=== PATIENT | male | born 1975 | race American Indian/Alaskan Native ===

== ENCOUNTER 2016-10-12 11:33 | Emergency (ER) | payer MEDICARE, OTHER ==
[2016-10-12 11:39] VITALS: BP 131/80; PULSE 79; RESP 18; TEMP 98.4; O2SAT 100
--- NOTE | 2016-10-12 11:50 | C.PDOC ---
History Of Present Illness A 40 year old male with past medical history includes HIV, hypertension, anemia , chronic kidney disease, end stage renal disease (dialysis MWF, left arm AVS), presents to the emergency department for a sore throat, which began 2 days ago, but he states today "it really hurts to swallow and talk". The patient reports he received a flu vaccine 4 days ago " after that developed sore throat". The patient notes a mild headache. Otherwise, pt denies fever, chills, denies worse headache of life, dizziness, neck pain or swelling, drooling, dyspnea, cough, shortness of breath, wheezing, abd. pain, N/V/D, denies any other complaints at this time. Ambulate to ED for evaluation, not in any apparent distress. Time Seen by Provider: 10/12/16 11:48 Chief Complaint (Nursing): Headache History Per: Patient History/Exam Limitations: no limitations Onset/Duration Of Symptoms: Days (x 2 days ) Current Symptoms Are (Timing): Still Present Past Medical History Vital Signs: Last Vital Signs Temp 98.4 F 10/12/16 11:36 Pulse 79 10/12/16 11:36 Resp 18 10/12/16 11:36 BP 131/80 10/12/16 11:36 Pulse Ox 100 10/12/16 12:04 - Medical History PMH: Anemia, HIV, HTN, End Stage Renal Disease (HD - M-W-F / LEFT ARM AVS) , Chronic Kidney Disease - [facility] Procedures HEMODIALYSIS (04/27/14) OTHER ENDOVASCULAR PROCEDURES ON OTHER VESSELS (04/27/14) PACKED CELL TRANSFUSION (04/27/14) Family History: States: Unknown Family Hx - Social History Hx Tobacco Use: No Hx Alcohol Use: Yes Hx Substance Use: No - Immunization History Hx Tetanus Toxoid Vaccination: No Hx Influenza Vaccination: Yes Hx Pneumococcal Vaccination: No Review Of Systems Except As Marked, All Systems Reviewed And Found Negative. Constitutional: Negative for: Fever, Chills Eyes: Negative for: Vision Change ENT: Positive for: Throat Pain, Throat Swelling. Negative for: Ear Discharge, Nose Discharge, Nose Congestion Cardiovascular: Negative for: Chest Pain, Palpitations, Edema, Light Headedness Respiratory: Negative for: Cough, Shortness of Breath, Wheezing Gastrointestinal: Negative for: Nausea, Vomiting, Abdominal Pain Genitourinary: Negative for: Dysuria Musculoskeletal: Negative for: Neck Pain Skin: Negative for: Rash Neurological: Positive for: Headache. Negative for: Weakness, Numbness, Altered Mental Status, Dizziness Physical Exam - Physical Exam Appears: Well, Non-toxic, No Acute Distress Skin: Normal Color, Warm, Dry, No Rash Head: Normacephalic Eye(s): bilateral: PERRL Ear(s): Bilateral: Normal Nose: No Flaring, No Discharge Oral Mucosa: Moist, No Drooling Tongue: Normal Appearing Lips: Normal Appearing Throat: Erythema, No Exudate, No Drooling, Other (mild pharyngeal edema with erythema; no exudate ) Neck: Supple Cardiovascular: Rhythm Regular Respiratory: No Decreased Breath Sounds, No Accessory Muscle Use, No Rales, No Rhonchi, No Stridor, No Wheezing Gastrointestinal/Abdominal: Soft, No Tenderness Back: No CVA Tenderness Extremity: No Pedal Edema, No Deformity Neurological/Psych: Oriented x3, Normal Speech, Normal Cognition ED Course And Treatment O2 Sat by Pulse Oximetry: 100 Pulse Ox Interpretation: Normal Progress Note: On re-evaluation, pt is afebrile, hemodynamicaly stable. Non- toxic. PulseOx 100% RA. ENT: exam c/w mild pharyngitis. Uvual midline, no edema. Neck: Supple, (-) meningeal sign. Lungs: CTA B/L, BS equal B/L. ABd: benign. Neuorlogicaly intact. Pt advised. ref. to f/u with PMD in 2-3 days for re-eavl. return i any new changes. Medical Decision Making Medical Decision Making: Treatment Plan: -- Prednisone, motrin, augmentin Progress Notes: Disposition Counseled Patient/Family Regarding: Diagnosis, Need For Followup, Rx Given - Disposition Referrals: Marco Carlton MD [Staff Provider] - Disposition: HOME/ ROUTINE Disposition Time: 11:57 Condition: STABLE Additional Instructions: Encourage fluids Warm salty water throat gurgles take medictaion as prescribed Follow up with pMD in 1-2 days for re-evaluation. Return to ED if any worsening or new changes. Prescriptions: Amoxicillin/Clavulanate [Augmentin 875 MG-125 MG] 1 tab PO BID #14 tab Prednisone [Deltasone] 20 mg PO DAILY #3 tablet Instructions: Pharyngitis (ED) Forms: [employer] (Vietnamese) - Clinical Impression Clinical Impression: Pharyngitis - Scribe Statement The provider has reviewed the documentation as recorded by the Scribe Niurka Mcmullen All medical record entries made by the Scribe were at my direction and personally dictated by me. I have reviewed the chart and agree that the record accurately reflects my personal performance of the history, physical exam, medical decision making, and the department course for this patient. I have also personally directed, reviewed, and agree with the discharge instructions and disposition.
[2016-10-12] MEDS ORDERED: Amoxicillin-Clav 875-125 mg Tab PO STA (11:56)
[2016-10-12] MEDS ORDERED: Amoxicillin-Clav 875-125 mg Tab PO ONE (12:07)
== END 2016-10-12 12:13 | disposition home or self-care (01) ==
LOC: C.ER 11:33
DX: J02.9 Acute pharyngitis, unspecified (principal)

== ENCOUNTER 2018-01-19 19:19 | Emergency (ER) | payer MEDICARE, OTHER ==
[2018-01-19 19:42] VITALS: BP 147/84; PULSE 67; RESP 16; TEMP 98.1; O2SAT 98
--- NOTE | 2018-01-19 20:23 | C.PDOC ---
History Of Present Illness Patient reports left second toe pain. Denies trauma, however he states that he was recently doing a lot of calf raises and that he may have injured the toe that way. No other pain. No history of gout. No fever or any other systemic symptoms. Time Seen by Provider: 01/19/18 19:42 Chief Complaint (Nursing): Lower Extremity Problem/Injury Past Medical History Vital Signs: Last Vital Signs Temp 98.1 F 01/19/18 19:40 Pulse 67 01/19/18 19:40 Resp 16 01/19/18 19:40 BP 147/84 01/19/18 19:40 Pulse Ox 98 01/19/18 19:40 - Medical History PMH: Anemia, HIV, HTN, End Stage Renal Disease (HD - M-W-F / LEFT ARM AVS), Chronic Kidney Disease - [facility] Procedures HEMODIALYSIS (04/27/14) OTHER ENDOVASCULAR PROCEDURES ON OTHER VESSELS (04/27/14) PACKED CELL TRANSFUSION (04/27/14) Family History: States: Unknown Family Hx - Social History Hx Tobacco Use: No Hx Alcohol Use: Yes Hx Substance Use: No - Immunization History Hx Tetanus Toxoid Vaccination: No Hx Influenza Vaccination: Yes Hx Pneumococcal Vaccination: No Review Of Systems Except As Marked, All Systems Reviewed And Found Negative. Constitutional: Negative for: Fever Gastrointestinal: Negative for: Nausea, Vomiting Musculoskeletal: Positive for: Other (Toe pain, L 2nd digit) Skin: Negative for: Rash, Bruising Neurological: Negative for: Weakness Physical Exam - Physical Exam Appears: Well, Non-toxic, No Acute Distress Skin: Normal Color, Warm, Dry Extremity: Other (Tenderness to base of L 2nd toe. No swelling or erythema.) Neurological/Psych: Oriented x3 ED Course And Treatment O2 Sat by Pulse Oximetry: 98 - Other Rad L 2nd toe X-Ray: Interpreted by Me Interpretation: No fracture or dislocation noted Medical Decision Making Medical Decision Making: Xray results discussed with patient. Advised bearing weight on toe as tolerated. Take NSAIDs as needed for pain and return to the ED for any new or worsening symptoms. Disposition - Disposition Disposition: HOME/ ROUTINE Disposition Time: 21:50 Condition: GOOD Additional Instructions: STEVE HERNANDEZ, thank you for letting us take care of you today. Your provider was Treasure Melendez MD and you were treated for LT TOE PAIN/SWOLLEN. The emergency medical care you received today was directed at your acute symptoms. If you were prescribed any medication, please fill it and take as directed. It may take several days for your symptoms to resolve. Return to the Emergency Department if your symptoms worsen, do not improve, or if you have any other problems. Please contact your doctor or call one of the physicians/clinics you have been referred to that are listed on the Patient Visit Information form that is included in your discharge packet. Bring any paperwork you were given at d ischarge with you along with any medications you are taking to your follow up visit. Our treatment cannot replace ongoing medical care by a primary care provider outside of the emergency department. Thank you for allowing the [facility] team to be part of your care today. If you had an X-Ray or CT scan: A Radiologist will review the ED reading if any change in treatment is needed we will contact you. If you had a blood, urine, or wound culture: It will take several days for the results, if any change in treatment is needed we will contact you. If you had an STI test: It will take 48 hours for the results. Please call after 1 week if you have not heard back. Instructions: Toe Injury (DC) Forms: [employer] (Czech) - Clinical Impression Clinical Impression: Toe pain, left
--- NOTE | 2018-01-20 12:38 | RAD ---
Left foot 2nd digit radiographs Indication: Pain Comparison: None available Findings: Marked soft tissue swelling of the 2nd digit. No acute displaced fracture. No dislocation. No evidence of radiopaque foreign body. Vascular calcifications. Impression: Marked soft tissue swelling of the 2nd digit. No acute displaced fracture identified.
== END 2018-01-19 22:04 | disposition home or self-care (01) ==
LOC: C.ER 19:19
DX: M79.675 Pain in left toe(s) (principal)